=== PATIENT | female | born 1985 | race Two or more races ===

== ENCOUNTER 2018-09-17 00:43 | Emergency (ER) | payer SELFPAY ==
[~2018-09-17] VITALS: Ht 160 cm; Wt 80.7 kg
[2018-09-17] MEDS ORDERED: LIDOCAINE-MPF 1%, 5ML INFIL ONE (01:00)
[2018-09-17] MEDS ORDERED: SODIUM CHLORIDE FLUSH 10ML SYR IVF ONE (01:00)
[2018-09-17] MEDS ORDERED: MORPHINE SULFATE 4 MG/ML, 1ML IVPush PRN (01:00)
[2018-09-17] MEDS ORDERED: ONDANSETRON 2MG/ML, 2ML IVPush ONE (01:00)
[2018-09-17] MEDS ORDERED: LORazepam 2 MG/ML, 1ML IVPush ONE (01:00)
[2018-09-17] MEDS ORDERED: MORPHINE SULFATE 4 MG/ML, 1ML ONE (01:05)
[2018-09-17] MEDS ORDERED: ONDANSETRON 2MG/ML, 2ML ONE (01:05)
[2018-09-17] MEDS ORDERED: LORazepam 2 MG/ML, 1ML ONE (01:06)
[2018-09-17 01:10] LABS: BASOPHILS # (AUTO) 0.04 x10^3/uL (0-0.1); BASOPHILS % (AUTO) 0 % (0-1); EOSINOPHILS # (AUTO) 0.06 x10^3/uL (0-0.4); EOSINOPHILS % (AUTO) 1 % (1-7); LYMPHOCYTES # (AUTO) 2.23 x10^3/uL (1-3.4); LYMPHOCYTES % (AUTO) 19 % (22-44); MD NO; MEAN CORPUSCULAR HEMOGLOBIN 31.5 pg (27.0-34.8); MEAN CORPUSCULAR HGB CONC 33.8 g/dL (32.4-35.8); MEAN CORPUSCULAR VOLUME 93.2 fL (80-100); MEAN PLATELET VOLUME 7.6 fL (7.4-10.4); MONOCYTES # (AUTO) 0.89 x10^3/uL (0.2-0.8); MONOCYTES % (AUTO) 8 % (2-9); NEUTROPHILS # (AUTO) 8.52 x10^3/uL (1.8-6.8); NEUTROPHILS % (AUTO) 73 % (42-75); PLATELET COUNT 319 x10^3/uL (130-400); RED BLOOD COUNT 4.01 x10^6/uL (3.82-5.3); RED CELL DISTRIBUTION WIDTH 13.7 % (9.6-15.2)
[2018-09-17 01:21] LABS: INTERNATIONAL NORMALIZED RATIO 0.91 (0.93-1.1); PROTHROMBIN TIME 9.7 Seconds (9.6-11.5)
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
[2018-09-17 01:28] LABS: ALANINE AMINOTRANSFERASE 12 U/L (12-78); ALBUMIN 3.5 g/dL (3.4-5.0); ANION GAP 5 mmol/L (5-15); CALCIUM 7.7 mg/dL (8.5-10.1); CHLORIDE 109 mmol/L (98-107); CREATININE 0.66 mg/dL (0.55-1.02)
[2018-09-17] MEDS ORDERED: LIDOCAINE-MPF 1%, 5ML ONE (01:30)
[2018-09-17] MEDS ORDERED: LIDOCAINE 1%, 10ML INFIL ONE (01:30)
[2018-09-17 01:32] LABS: ALKALINE PHOSPHATASE 90 U/L (45-117); BILIRUBIN,TOTAL 0.2 mg/dL (0.2-1.0); TOTAL PROTEIN 6.6 g/dL (6.4-8.2)
--- NOTE | 2018-09-17 01:49 | NUR ---
TECH IN ROOM CLEANING LAC
[2018-09-17] MEDS ORDERED: OMNIPAQUE 350 MG/ML, 100ML BOTTLE ONE (02:30)
--- NOTE | 2018-09-17 02:53 | NUR ---
pt resting in room. regular resp. no acute distress noted. call light in place. will continue to monitor.
[2018-09-17] MEDS ORDERED: BACITRACIN ZINC OINT 500U/GM, 0.9 GM ONE (03:44)
[2018-09-17 03:47] VITALS: BP 109/55
--- NOTE | 2018-09-17 03:51 | NUR ---
ABRASIONS CLEANSED BEFORE DISCHRAGE. PT GIVEN LOOSE CLOTHES FROM [facility] CLOSET FOR COMFORT. RESOURCES GIVEN PT DISCHARGED.
== END 2018-09-17 03:55 | disposition home or self-care (01) ==
LOC: ED 01:30
DX: S06.0X9A Concussion with loss of consciousness of unspecified duration, initial encounter (principal); S01.122A Laceration with foreign body of left eyelid and periocular area, initial encounter; S16.1XXA Strain of muscle, fascia and tendon at neck level, initial encounter; S50.312A Abrasion of left elbow, initial encounter; S70.212A Abrasion, left hip, initial encounter; F17.200 Nicotine dependence, unspecified, uncomplicated; W19.XXXA Unspecified fall, initial encounter; Y93.89 Activity, other specified; Y92.410 Unspecified street and highway as the place of occurrence of the external cause; Y99.8 Other external cause status
CPT/HCPCS: 12051; 36415; 70450; 71045; 72125; 72131; 73080; 74177; 80053; 80307; 84703; 85025; 85610; 85730; 96374; 96375; 99284; J2405; Q9967